=== PATIENT | female | born 1990 | race American Indian/Alaskan Native ===

== ENCOUNTER 2017-02-27 03:51 | Emergency (ER) | payer SELFPAY ==
[2017-02-27 04:34] VITALS: BP 127/75; PULSE 90; RESP 17; TEMP 99; O2SAT 100
--- NOTE | 2017-02-27 04:46 | ED PDOC ---
Lower Extremity Pain/Injury Time Seen by Provider: 02/27/17 04:32 Chief Complaint (Nursing): Lower Extremity Problem/Injury Chief Complaint (Provider): foot pain History Per: Patient History/Exam Limitations: no limitations Onset/Duration Of Symptoms: Hrs Current Symptoms Are (Timing): Still Present Additional History Per: Patient Additional Complaint(s): 26 y/o female presents with right foot pain x 9 hours. Patient states she tripped going down a few stairs and thinks she may have twisted foot while doing so. She is complaining of pain to top of right foot, worse with weight- bearing. Denies numbness/weakness right lower extremity, limitation of movement. Past Medical History Reviewed: Historical Data, Nursing Documentation, Vital Signs Vital Signs: Last Vital Signs Temp 99.0 F 02/27/17 04:31 Pulse 90 02/27/17 04:31 Resp 17 02/27/17 04:31 BP 127/75 02/27/17 04:31 Pulse Ox 100 02/27/17 04:31 - Medical History PMH: No Chronic Diseases - Surgical History Surgical History: No Surg Hx - Family History Family History: States: Unknown Family Hx - Living Arrangements Living Arrangements: With Family - Home Medications Home Medications: Ambulatory Orders Medication Instructions Recorded Ibuprofen [Motrin Tab] 1 tab PO Q6 PRN #20 tab 02/27/17 - Allergies Allergies/Adverse Reactions: Allergies Allergy/AdvReac Type Severity Reaction Status Date / Time No Known Allergies Allergy Verified 02/27/17 04:34 Review of Systems ROS Statement: Except As Marked, All Systems Reviewed And Found Negative Musculoskeletal: Positive for: Foot Pain (right) Physical Exam - Reviewed Nursing Documentation Reviewed: Yes Vital Signs Reviewed: Yes - Physical Exam Appears: Positive for: Well, Non-toxic, No Acute Distress Pulses-Dorsalis Pedis (L): 2+ Pulses-Dorsalis Pedis (R): 2+ Pulses-Post. Tibialis (L): 2+ Pulses-Post. Tibialis (R): 2+ Extremity: Positive for: Normal ROM, Tenderness (abrasion dorsal aspect right foot. Tender to palpate dorsal proximal right 2-4 metatarsals with mild swelling. Distal NV, motor intact. ), Capillary Refill (<2 sec b/l UE). Negative for: Deformity Neurologic/Psych: Negative for: Motor/Sensory Deficits - ECG O2 Sat by Pulse Oximetry: 100 - Other Rad xray right ankle X-Ray: Interpreted by Me, Viewed By Me X-Ray Interpretation: no acute findings xray right foot X-Ray: Interpreted by Me, Viewed By Me X-Ray Interpretation: no acute findings - Progress ED Course And Treament: xray, ibuprofen Patient right foot wrapped in [place], surgical shoe given, crutches given. ADvised follow up Podiatry. RICE. Rx ibuprofen given. REturn to ED for worsening/concerning symptoms. Disposition - Clinical Impression Clinical Impression: Foot sprain - Patient ED Disposition Is Patient to be Admitted: No Counseled Patient/Family Regarding: Studies Performed, Diagnosis, Need For Followup, Rx Given - Disposition Referrals: Podiatry Clinic [Outside] Disposition: Routine/Home Disposition Time: 05:45 Condition: IMPROVED Prescriptions: Ibuprofen [Motrin Tab] 1 tab PO Q6 PRN #20 tab PRN Reason: Pain, Moderate (4-7) Instructions: Foot Sprain (ED), RICE Therapy (ED) Forms: [facility] ED School/Work Excuse
--- NOTE | 2017-02-27 13:29 | RAD ---
PROCEDURE: Right Ankle Radiographs. HISTORY: Fall COMPARISON: None FINDINGS: BONES: There is no acute fracture or bone destruction. Bone alignment and mineralization are normal. JOINTS: Normal. Ankle mortise maintained. Talar dome intact SOFT TISSUES: Normal. OTHER FINDINGS: None. IMPRESSION: No acute fracture or dislocation.
--- NOTE | 2017-02-27 13:33 | RAD ---
PROCEDURE: Right Foot Radiographs. HISTORY: fall, pain dorsal aspect COMPARISON: None. FINDINGS: BONES: Bone alignment and mineralization are normal. There is no acute fracture or bone destruction JOINTS: Normal. SOFT TISSUES: Normal. OTHER FINDINGS: None. IMPRESSION: No acute fracture or dislocation.
== END 2017-02-27 06:08 | disposition home or self-care (01) ==
LOC: H.ER 03:51
DX: S93.601A Unspecified sprain of right foot, initial encounter (principal); W19.XXXA Unspecified fall, initial encounter; Y92.89 Other specified places as the place of occurrence of the external cause